=== PATIENT | female | born 1965 | race Hispanic/Latino ===

== ENCOUNTER → 2023-11-17 11:25 | Outpatient (REF) | payer OTHER, SELFPAY | LOC: WDC 11:25 | PROVIDERS: ATTENDING PHYSICIAN Internal Medicine | DX: Z12.31 Encounter for screening mammogram for malignant neoplasm of breast (principal) | CPT/HCPCS: 77063; 77067 ==

== ENCOUNTER 2023-12-21 16:10 | Emergency (ER) | payer OTHER, SELFPAY ==
[2023-12-21 16:14] VITALS: BP 135/75
--- NOTE | 2023-12-21 17:36 | ED.GENMED ---
History of Present Illness
General
Chief Complaint: Fall
Time Seen by Provider: 12/21/23 16:51
History of Present Illness
History of Present Illness:
58-year-old female presents to the emergency department for evaluation of left upper chest wall pain after a fall 4 days ago. Pain is pleuritic and radiates through to the scapula. Denies any hemoptysis. No upper extremity paresthesias. Has been
taking naproxen without relief
Past History
Past History
ED Past Medical History: None
ED Past Surgical History: None
Social History
Personal:
Review of Systems
Review of Systems
Allergies reviewed?: Yes
All Other Systems: ROS reviewed and negative except as documented in HPI and ROS
Phy Exam
Physical Exam
Physical Exam:
GEN: Well appearing, NAD, WDWN
HEENT: Oral mucosa moist, no scleral icterus
Cardiac: Regular rate
Chest: Tenderness to the left upper chest wall, no palpable deformity, no ecchymosis
Lung: No respiratory distress, no tachypnea, clear to auscultation bilaterally
MSK: No gross deformity or injuries
Skin: Good color, no pallor or jaundice, no rashes
Neuro: AO x3, moves all extremities freely
Psych: Calm, cooperative
Course
Orders/Labs/Results
Orders:
Orders
12/21/23 16:17
CR Chest - 2 Views Urgent
Comment:
Reason For Exam: fall
Vital Signs
Initial and Last Documented VS:
Initial Vital Signs
Temp Pulse Resp BP Pulse Ox
98.0 F 64 20 135/75 99
12/21/23 16:14 12/21/23 16:14 12/21/23 16:14 12/21/23 16:14 12/21/23 16:14
Last Documented Vital Signs
Temp Pulse Resp BP Pulse Ox
98.0 F 64 20 135/75 99
12/21/23 16:14 12/21/23 16:14 12/21/23 16:14 12/21/23 16:14 12/21/23 16:14
MDM/Problems Addressed
MDM/Problems Addressed:
Chest x-ray shows no evidence of rib fracture or pneumothorax. Discussed supportive care for chest wall contusions to include incentive spirometry, NSAIDs, and pain medication
*Critical Care Note
Total Time (30-74mins, 75-104mins- exclusive of procedures): Not Applicable
ED Attending Note
-
Portions of this chart may have been created with voice recognition software.� Occasional wrong word or��sound alike� substitutions may have occurred due to the inherent limitations of voice recognition software.
Discharge Plan
Departure
Patient Disposition: Home (Routine Discharge)
Date of Disposition: 12/21/23
Time of Disposition: 17:38
Patient with high blood pressure during this ER visit?: No
Discharge Problem:
Chest wall contusion
Instructions: Bruised Rib (DC)
Prescriptions:
New
tramadol 50 mg tablet
50 mg PO Q8H PRN (Reason: Pain) Qty: 10 0RF
No Action
No Meds [No Current Medications]
0
hydrocodone-acetaminophen 1 EACH tablet
1 ea PO Q4HPRN PRN (Reason: pain) Qty: 15 0RF
Referrals:
Marisol Cruz MD [Family Provider] -
Interventions
Interventions:
*Risk Screen - Suicide Last Done: 12/21/23 16:14
*General Assessment Last Done: 12/21/23 16:14
*Neglect/Abuse Screening Last Done: 12/21/23 16:14
*Nursing Disposition Last Done: 12/21/23 18:05
Discharge Date and Time
Discharge Date/Time: 12/21/23 18:06
Print Language: URDU
== END 2023-12-21 18:06 | disposition home or self-care (01) ==
LOC: EMR 16:10
PROVIDERS: EMERGENCY PHYSICIAN Emergency Medicine; FAMILY PHYSICIAN Internal Medicine
DX: S20.212A Contusion of left front wall of thorax, initial encounter (principal); W19.XXXA Unspecified fall, initial encounter; Z88.6 Allergy status to analgesic agent
CPT/HCPCS: 99283; 71046

== ENCOUNTER → 2024-11-17 16:23 | Outpatient (REF) | payer OTHER, SELFPAY | LOC: WDC 16:23 | PROVIDERS: ATTENDING PHYSICIAN Internal Medicine | DX: Z12.31 Encounter for screening mammogram for malignant neoplasm of breast (principal) | CPT/HCPCS: 77063; 77067 ==